=== PATIENT | female | born 1935 | race Caucasian/White ===

== ENCOUNTER 2020-03-07 10:12 | Outpatient (CLI) | payer MEDICARE, SELFPAY ==
[2020-03-07 11:19] LABS: Basophils Absolute Auto 0.1 K/mm3 (0.0-0.1); Basophils Percent Auto 0.6 % (0.2-1.2); Eosinophils Absolute Auto 0.5 K/mm3 (0-0.3); Eosinophils Percent Auto 3.9 % (0-4.4); Hemoglobin 10.4 g/dL (12.0-15.0); Immature Granulocyte Absolute 0.03 K/mm3 (0.00-0.031); Immature Granulocyte Percent A 0.3 % (0-0.5); Lymphocytes Absolute Auto 1.49 K/mm3 (0.9-3.2); Mean Corpuscular HGB Conc 30.6 g/dl (32-36); Mean Corpuscular Hemoglobin 26.2 pg (26-34); Mean Corpuscular Volume 85.6 fl (80-100); Mean Platelet Volume 10.4 fl (7.4-10.4); Monocytes Absolute Auto 0.9 K/mm3 (0.1-0.6); Monocytes Percent Auto 7.9 % (2.6-8.5); Neutrophils Absolute Auto 8.5 K/mm3 (1.3-6.7); Neutrophils Percent Auto 74.3 % (45.5-73.1); Platelet Count Result 402 k/mm3 (150-375); Red Blood Count 3.97 M/mm3 (4.2-5.4); Red Cell Distribution Width 14.9 % (11.5-14.5); White Blood Count 11.5 K/mm3 (4.5-10.0)
[2020-03-07 12:02] LABS: Add Urine Microscopic? YES; Appearance Urine Clear (Clear); Bacteria Urine Trace /hpf; Bilirubin Urine Negative (Negative); Blood Urine Negative (Negative); Color Urine Yellow (Yellow); Glucose Urine UA Negative (Negative); Ketones Urine Negative (Negative); Leukocyte Esterase Ur 2+ LEU/UL (Negative); Mucus Urine Rare /lpf; Nitrate Urine Positive (Negative); Protein Urine Negative (Negative); RBC Urine 0-2 /hpf (0-2); Specific Grav Ur 1.014 (1.001-1.035); Squamous Epithelial Cell Urine Few /hpf (Few); Urobilinogen Urine Negative mg/dL (<2.0)
[2020-03-07 12:18] LABS: Alanine Aminotransferase 21 U/L (4-35); Albumin Level 3.9 g/dL (3.5-5.1); Alkaline Phosphatase 87 U/L (38-126); Anion Gap 12.2 mmol/L (7-16); Aspartate Amino Transferase 23 U/L (14-36); Bilirubin,Total 0.2 mg/dL (0.2-1.3); Blood Urea Nitrogen 26 mg/dL (7-17); CRP 2.4 mg/dL (<1.0); Calcium 9.5 mg/dL (8.4-10.2); Carbon Dioxide 27 mmol/L (22-30); Chloride 101 mmol/L (98-107); Estimated Glomerular Filt Rate > 60; Glucose 133 mg/dL (65-105); Potassium 4.2 mmol/L (3.4-5.0); Sodium 136 mmol/L (137-145)
[2020-03-07 12:27] LABS: Erythrocyte Sedimentation Rate 74 mm/hr (0-20)
[2020-03-07 13:17] LABS: Rheumatoid Factor < 8.6 IU/ML (<12)
[2020-03-12 21:51] LABS: Anti Cyclic Citrullinated Pept <16 Units (<20)
[2020-03-12 22:40] LABS: ANA Cascade Screen Negative (Negative)
== END 2020-03-07 10:13 | disposition home or self-care (01) ==
PROVIDERS: Visit Provider Internal Medicine
DX: M19.90 Unspecified osteoarthritis, unspecified site (principal); M06.9 Rheumatoid arthritis, unspecified; Z79.899 Other long term (current) drug therapy
CPT/HCPCS: 36415; 80053; 81001; 85025; 85652; 86038; 86140; 86200; 86430

== ENCOUNTER 2020-03-07 11:18 | Outpatient (CLI) | payer MEDICARE, SELFPAY ==
--- NOTE | ~2020-03-07 | XR_ITS ---
XR lumbar spine min 4V DATE: 03/07/2020 12:31 INDICATION: Back pain TECHNIQUE: AP, lateral, coned lateral lumbosacral and bilateral oblique views COMPARISON: None FINDINGS: There is moderate levoscoliosis of the lower thoracic and lumbar spine. There is moderately prominent degenerative disc disease at L1-2, L3-4. There is severe degenerative disc disease at L2-3. There is very severe degenerative disc disease at L4-5, with borderline grade 1/grade 2 anterolisthes is at L4-5. There is severe degenerative disc disease at L5-S1. There is very prominent degenerative change at the apophyseal joints at the mid and lower lumbar and lumbosacral spine. The sacroiliac joints are intact. There is extensive calcification of the abdominal aorta and iliac arteries, without aneurysm. IMPRESSION: Moderate levoscoliosis of the lower thoracic and lumbar spine Extensive degenerative disc disease of the lumbar and lumbosacral spine Borderline grade 1/grade 2 anterolisthesis at L4-5 Reviewed, dictated and finalized at location B.
--- NOTE | ~2020-03-07 | XR_ITS ---
EXAMINATION: XR knee LT min 4V DATE: 03/07/2020 12:31 INDICATION: Left knee pain. TECHNIQUE: 4 views of left knee were obtained. COMPARISON: None. FINDINGS: There is a total left knee arthroplasty with patellar resurfacing in near-anatomic alignmen t. No fracture. No periprosthetic lucency to suggest loosening or infection. There is a small knee belinda int effusion. IMPRESSION: 1. Total left knee arthroplasty in near-anatomic alignment. 2. Small left knee joint effusion. Reviewed, dictated and finalized at location A.
--- NOTE | ~2020-03-07 | XR_ITS ---
XR foot RT standing 2V DATE: 03/07/2020 12:31 INDICATION: Right foot pain. Osteoarthritis. TECHNIQUE: Standing AP and lateral views COMPARISON: None FINDINGS: Mild posterior calcaneal enthesopathy. There is severe osteoarthritis at the first metatarsophalangeal joint. There are some irregular calci fications along the medial aspect of the head of the first metatarsal bone. There is mild hallux valg us. Recommend clinical correlation for possible prior bunionectomy. No recent fracture or dislocation, periosteal reaction or bone destruction is noted otherwise. Os tib iale externum, normal variant. IMPRESSION: Severe osteoarthritis at the first metatarsophalangeal joint; there are irregular calcifi cations or ossific densities along the medial aspect of the first metatarsal head Mild posterior calcaneal enthesopathy Reviewed, dictated and finalized at location B. IMPRESSION: Severe osteoarthritis at the first metatarsophalangeal joint; there are irregular calcifications or ossific densities along the medial aspect of t he first metatarsal head Mild posterior calcaneal enthesopathy
--- NOTE | ~2020-03-07 | XR_ITS ---
XR hand BI arthritis min 3V DATE: 03/07/2020 12:31 INDICATION: Bilateral hand pain. Osteoarthritis. TECHNIQUE: 4 views of each hand COMPARISON: None FINDINGS: Right hand: Minimal triangular cartilage calcification. Diffuse osteopenia. The lunate bone is attenuated in size, possibly due to chronic avascular necrosis or possibly old fra cture. There is polyarticular osteoarthritis including the first carpometacarpal joint, especially the secon d metacarpophalangeal and also first and third metacarpophalangeal joints and multiple interphalangea l joints. Left hand: Mild granular cartilage calcification. Diffuse osteopenia. Osteoarthritic change at the triscaphe and first carpometacarpal and second metacarpophalangeal and m ultiple interphalangeal joints. No fracture, dislocation, periosteal reaction or bone destruction. 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
--- NOTE | ~2020-03-07 | XR_ITS ---
XR hip BI 2V w AP pelvis DATE: 03/07/2020 12:31 INDICATION: Bilateral hip pain TECHNIQUE: AP pelvis. AP and lateral views of each hip. COMPARISON: None FINDINGS: There is levoscoliosis and multilevel degenerative disc disease of the lumbar spine. The sacral iliac joints and pubic symphysis are intact. Mild osteitis pubis. Diffuse osteopenia. No pelvic fracture or bone destruction is detected. Hip joint spaces are symmetric and relatively pre served. No fracture, dislocation, avascular necrosis or bone destruction of either hip is detected. Abdominal aortic and iliac and femoral arterial calcifications IMPRESSION: Levoscoliosis and multilevel degenerative disease of the lumbar spine Osteopenia No fracture or dislocation or bone destruction of the hips Reviewed, dictated and finalized at location B. IMPRESSION: Levoscoliosis and multilevel degenerative disease of the lumbar spi ne Osteopenia No fracture or dislocation or bone destruction of the hips
--- NOTE | ~2020-03-07 | XR_ITS ---
EXAMINATION: XR knee RT min 4V DATE: 03/07/2020 12:31 INDICATION: Unspecified osteoarthritis, unspecified site. TECHNIQUE: 4 views of right knee were obtained. COMPARISON: None. FINDINGS: There is lateral subluxation of patella. No fracture. There is severe osteoarthritis of pat ellofemoral compartment, moderate osteoarthritis of lateral compartment, and mild osteoarthritis of m edial compartment. There is chondrocalcinosis of the menisci. No knee joint effusion. IMPRESSION: 1. Severe right knee osteoarthritis. Reviewed, dictated and finalized at location A.
--- NOTE | ~2020-03-07 | XR_ITS ---
XR foot LT standing 2V DATE: 03/07/2020 12:31 INDICATION: Osteoarthritis. Foot pain. TECHNIQUE: Weightbearing AP and lateral views COMPARISON: None FINDINGS: There is posterior calcaneal enthesopathy. No fracture or dislocation, periosteal reaction or bone destruction is detected. Os tibiale externum, normal variant. Joint spaces are relatively preserved. No erosive change is evident. IMPRESSION: Posterior calcaneal enthesopathy Reviewed, dictated and finalized at location B.
== END 2020-03-07 11:19 | disposition home or self-care (01) ==
LOC: ANHIMG 11:34
PROVIDERS: Visit Provider Internal Medicine
DX: M06.9 Rheumatoid arthritis, unspecified (principal); M19.071 Primary osteoarthritis, right ankle and foot; M77.31 Calcaneal spur, right foot; M77.32 Calcaneal spur, left foot; M85.841 Other specified disorders of bone density and structure, right hand; M85.842 Other specified disorders of bone density and structure, left hand; M19.041 Primary osteoarthritis, right hand; M19.042 Primary osteoarthritis, left hand; M85.851 Other specified disorders of bone density and structure, right thigh; M85.852 Other specified disorders of bone density and structure, left thigh; M51.36 Other intervertebral disc degeneration, lumbar region; M51.37 Other intervertebral disc degeneration, lumbosacral region; M17.11 Unilateral primary osteoarthritis, right knee; M25.462 Effusion, left knee
CPT/HCPCS: 36415; 72110; 73130; 73521; 73564; 73620; 80053; 81001; 85025; 85652; 86038; 86140; 86200; 86430

== ENCOUNTER 2020-04-29 15:41 | Outpatient (CLI) | payer MEDICARE, SELFPAY ==
--- NOTE | ~2020-04-29 | XR_ITS ---
EXAMINATION: XR sacroiliac joints min 3V DATE: 04/29/2020 18:21 INDICATION: Unspecified osteoarthritis, unspecified site. TECHNIQUE: 3 views of the sacroiliac joints were obtained. COMPARISON: Pelvis radiograph 03/07/2020 FINDINGS: There is lumbar levoscoliosis and severe spondylosis. No fracture. There is mild osteoarthr itis of the sacroiliac joints and hip joints. Osteitis pubis is noted. IMPRESSION: 1. Mild osteoarthritis of the sacroiliac joints. Reviewed, dictated and finalized at location A.
--- NOTE | ~2020-04-29 | MR_ITS ---
EXAMINATION: MR hand LT wo/w con, MR hand RT wo/w con DATE: 04/29/2020 18:17 INDICATION: Unspecified osteoarthritis. Assess for rheumatoid arthritis. TECHNIQUE: 1. Magnetic resonance imaging (MRI) of the left hand was performed without and with 15 mL Multihance intravenous contrast to include the metacarpals and digits. Sequences included axial T1-weighted FS F SE and axial, sagittal and coronal T1-weighted FSE and T2-weighted FS FSE. Following contrast injecti on the patient requested the study be terminated and no post contrast images were obtained. The axial and sagittal images of both hands were obtained on the same sequences. The left hand is indicated wi th a marker. 2. MRI of the right hand was performed without and with 15 mL Multihance intravenous contrast to incl ude the metacarpals and digits utilizing the same contrast bolus. As with the left hand, post contras t images were unable to be obtained. Sequences included axial T1-weighted FS FSE and axial, sagittal and coronal T1-weighted FSE and T2-weighted FS FSE. As previously noted no post contrast images were able to be obtained. COMPARISON: Radiographs dated 03/07/2020 FINDINGS: At the right carpus there is volar subluxation and dorsal rotation of the lunate with increased betwe en the capitate and scapholunate angles consistent with dorsal intercalated segment instability (DISI ). The right lunate appears small with remodeling at the dorsal aspect of the bone. Bone alignment is otherwise normal. No fracture. Polyarticular osteoarthritis with nonuniform joint space narrowing an d osteophyte formation at both hands which is severe at the bilateral second metacarpophalangeal join ts and, moderate severity at the right first carpal metacarpal and mid carpal joints and mild at many of the remaining metacarpophalangeal joints, majority of the interphalangeal joints, at the left fir st carpal metacarpal joint and bilateral triscaphe joints. In the right hand and wrist are erosions a t the heads of the second and fifth metacarpals, the base of the second proximal phalanx, base of the first metacarpal and at the ulnar styloid process. At the left hand and wrist there are small erosio ns at the base of the second proximal phalanx. Mild joint effusion and/or synovitis at the left and r ight second metacarpophalangeal joints. No other joint effusions or other abnormal fluid collections. The flexor and extensor tendons at both hands as well as the collateral ligament complexes at the bi lateral metacarpophalangeal and interphalangeal joints appear normal. IMPRESSION: 1. Polyarticular osteoarthritis at the bilateral hands with atypical predominance at the bilateral se cond metacarpophalangeal joints where there are prominent hooked osteophytes and erosions. This along with the assistance of chondrocalcinosis evident at the triangular fibrocartilage complex on the [place] or radiographs would strongly favor calcium pyrophosphate deposition (CPPD) disease or other inflamma tory arthritis such as rheumatoid arthritis. 2. 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 Reviewed, dictated and finalized at location A. IMPRESSION: 1. Polyarticular osteoarthritis at the bilateral hands with atypical predominan ce at the bilateral second metacarpophalangeal joints where there are prominent hooked osteophytes and erosions. This along with the assistance of chondrocalc inosis evident at the triangular fibrocartilage complex on the prior radiograph s would strongly fav
[2020-04-29 16:52] LABS: Estimated Glomerular Filt Rate 43
== END 2020-04-29 15:42 | disposition home or self-care (01) ==
PROVIDERS: PCP Internal Medicine; Visit Provider Internal Medicine
DX: M06.9 Rheumatoid arthritis, unspecified (principal); M19.042 Primary osteoarthritis, left hand; M19.041 Primary osteoarthritis, right hand; M47.898 Other spondylosis, sacral and sacrococcygeal region
CPT/HCPCS: 72202; 73220; A9577

== ENCOUNTER 2020-06-17 15:52 | Emergency (ER) | payer MEDICARE, SELFPAY ==
--- NOTE | ~2020-06-17 | XR_ITS ---
EXAMINATION: XR chest 2V DATE: 06/17/2020 17:29 INDICATION: Shortness of breath and left chest pain. TECHNIQUE: Frontal and lateral views of the chest were obtained. COMPARISON: None. FINDINGS: There is mild atelectasis at left lung base. There is blunting of left posterior costophren ic angle. No pneumothorax. The heart size is normal. There are surgical clips in left breast. IMPRESSION: 1. Blunting of left posterior costophrenic angle, consistent with scarring versus tiny pleural effusi on. 2. Mild atelectasis at left lung base. Reviewed, dictated and finalized at location A. OARCHAEOLOGIST IMPRESSION: 1. Blunting of left posterior costophrenic angle, consistent with scarring vers us tiny pleural effusion. 2. Mild atelectasis at left lung base.
--- NOTE | 2020-06-17 16:01 | ECG_ITS ---
Measurements Intervals [place] Rate: 79 P: 53 KS: 164 QRS: -6 QRSD: 83 T: 60 QT: 375 QTc: 432 Interpretive Statements SINUS RHYTHM LEFT VENTRICULAR HYPERTROPHY AND ST-T CHANGE BASELINE ARTIFACT- I, III, AVF, V1, V4-V6 BORDERLINE ECG Electronically Signed On 06-17-2020 16:26:48 INSTRUMENTATION DESIGNER by Robert Womack D.O.
[2020-06-17 16:03] VITALS: BP 119/72; PULSE 81; RESP 18; TEMP 36; O2SAT 98
[2020-06-17 16:16] LABS: Basophils Percent Auto 0.4 % (0.2-1.2); Eosinophils Absolute Auto 0.1 K/mm3 (0-0.3); Hematocrit 38.3 % (37.0-47.0); Hemoglobin 12.4 g/dL (12.0-15.0); Immature Granulocyte Absolute 0.07 K/mm3 (0.00-0.031); Immature Granulocyte Percent A 0.6 % (0-0.5); Lymphocytes Absolute Auto 1.19 K/mm3 (0.9-3.2); Lymphocytes Percent Auto 10.8 % (18.3-44.2); Mean Corpuscular HGB Conc 32.4 g/dl (32-36); Mean Corpuscular Hemoglobin 28.4 pg (26-34); Mean Corpuscular Volume 87.6 fl (80-100); Mean Platelet Volume 10.5 fl (7.4-10.4); Monocytes Absolute Auto 0.6 K/mm3 (0.1-0.6); Monocytes Percent Auto 5.7 % (2.6-8.5); Neutrophils Percent Auto 81.5 % (45.5-73.1); Platelet Count Result 283 k/mm3 (150-375); Red Blood Count 4.37 M/mm3 (4.2-5.4); Red Cell Distribution Width 16.4 % (11.5-14.5)
[2020-06-17 16:26] LABS: Anion Gap 8 mmol/L (8-16); Blood Urea Nitrogen 35 mg/dL (7-17); Calcium 9.7 mg/dL (8.4-10.2); Carbon Dioxide 28 mmol/L (22-30); Chloride 101 mmol/L (98-107); Estimated Glomerular Filt Rate 48; Glucose 177 mg/dL (65-105); Potassium 4.4 mmol/L (3.4-5.0); Sodium 137 mmol/L (137-145)
[2020-06-17 16:30] LABS: INR 0.9; Prothrombin Time 12.8 Seconds (11.1-14.7)
[2020-06-17 16:31] LABS: Partial Thromboplastin Time 23.1 SECONDS (22.3-36.8)
[2020-06-17 16:47] LABS: Troponin I 0.025 ng/mL (0.000-0.034)
--- NOTE | 2020-06-17 17:47 | ED.CHESTPAIN ---
HPI - Chest Pain General Chief Complaint: Chest Pain Stated Complaint: cp, sob Time Seen by Provider: 06/17/20 17:20 Source: patient History of Present Illness HPI narrative: 84-year-old female presents to emergency department for shortness of breath with exertion for the past 3 months. Patient was seen by her collections rep today, and was sent into the emergency department for further evaluation. Patient denies history of taking Lasix. Currently patient is asymptomatic. No current chest pain or shortness of breath. No abdominal pain. No nausea or vomiting. No fever or chills. Related Data Home Medications Medication Instructions Recorded Confirmed aspirin 81 mg tablet,delayed 81 mg PO DAILY 02/25/20 03/07/20 release atorvastatin 20 mg tablet 20 mg PO DAILY 02/25/20 03/07/20 carvedilol 6.25 mg tablet 6.25 mg PO Q12H 02/25/20 03/07/20 gabapentin 300 mg capsule 300 mg PO TID 02/25/20 03/07/20 lisinopril 20 1 tablet PO DAILY 02/25/20 03/07/20 mg-hydrochlorothiazide 25 mg tablet metformin 500 mg tablet,extended 500 mg PO BID 02/25/20 03/07/20 release 24hr ropinirole 2 mg tablet 2 mg PO BID 02/25/20 03/07/20 Allergies Allergy/AdvReac Type Severity Reaction Status Date / Time meperidine [From Demerol] Allergy Mild Nausea and Verified 06/17/20 18:02 Vomiting morphine Allergy Mild Nausea and Verified 06/17/20 18:02 Vomiting Review of Systems Review of Systems: Narrative: CONSTITUTIONAL: Denies fever, chills, or sweats. EYES: Denies visual changes, redness, or discharge. ENT: Denies rhinorrhea, congestion, sore throat, or otalgia. CARDIOVASCULAR: Denies chest pain, palpitations, or edema. RESPIRATORY: Denies cough or dyspnea. GASTROINTESTINAL: Denies abdominal pain, nausea, vomiting, or diarrhea. GENITOURINARY: Denies dysuria or hematuria. SKIN: Denies rash or itching. MUSCULOSKELETAL: Denies back pain, joint pain, or myalgia. NEUROLOGIC: Denies headache, numbness, dizziness, or weakness. PSYCHIATRIC: Denies anxiety or depression. All systems reviewed & are unremarkable except as noted in HPI and below (ROS) [facility] Past Medical History Medical History Anemia Arthritis Cancer Chest pain at rest (~06/2020) Diabetes Gallbladder disorder Generalized osteoarthritis of multiple sites Hypertension Obstruction of right carotid artery Osteoporosis Polymyalgia rheumatica Tuberculosis Surgical History Surgical History H/O bladder repair surgery H/O: hysterectomy History of arthroplasty of left shoulder History of bunionectomy History of total left knee replacement Hx of cholecystectomy Status post left breast lumpectomy Status post right foot surgery Family History Family History Mother Liver disease Father Cerebrovascular accident Heart disease Grandparent Tuberculosis Cerebrovascular accident Stomach cancer Exam Narrative: Exam Narrative: GENERAL: Well-appearing, well-nourished, and in no acute distress. HEAD: Normocephalic, atraumatic. EYES: PERRLA and EOMI. ENT: Nares clear, no rhinorrhea or epistaxis. Mucous membranes moist. NECK: Supple. CHEST: Clear to auscultation. No respiratory distress. HEART: Regular rate and rhythm. 3/6 systolic murmur. Normal peripheral pulses. ABDOMEN: Soft, nontender, nondistended, normal active bowel sounds. EXTREMITIES: Normal range of motion. 1+ pitting edema lower extremities bilaterally SKIN: Warm, dry, no rash. NEURO: No focal deficits. Alert and oriented x3. PSYCH: Normal mood and affect. Course Reevaluation(s) Reevaluation #1: 1915 -reevaluated patient, no new complaints. At this time, I see no emergent condition necessitating this patient to be kept in the hospital for further evaluation. Patient likely has a form of CHF. Patient will need an
[2020-06-17 18:00] VITALS: PULSE 73; O2SAT 100
[2020-06-17 18:01] VITALS: BP 131/83; PULSE 77; RESP 18; O2SAT 99
[2020-06-17 18:30] LABS: NT Pro B Type Natriuretic Pept 697 PG/ML (5-100)
[2020-06-17 19:37] LABS: Troponin I 0.024 ng/mL (0.000-0.034)
[2020-06-17 20:12] VITALS: BP 130/78; PULSE 74; RESP 18; TEMP 36.7; O2SAT 98
== END 2020-06-17 20:12 | disposition home or self-care (01) ==
PROVIDERS: Emergency Provider Emergency Medicine; PCP Internal Medicine
DX: R06.02 Shortness of breath (principal); D64.9 Anemia, unspecified; M19.90 Unspecified osteoarthritis, unspecified site; E11.9 Type 2 diabetes mellitus without complications; I10 Essential (primary) hypertension; Z96.652 Presence of left artificial knee joint; Z79.84 Long term (current) use of oral hypoglycemic drugs
CPT/HCPCS: 36415; 71046; 80048; 83880; 84484; 85025; 85610; 85730; 93005; 99284

== ENCOUNTER 2023-03-13 19:48 | Emergency (ER) | payer MEDICARE, SELFPAY ==
[2023-03-13 19:54] VITALS: BP 141/92; PULSE 84; RESP 20; TEMP 36.5; O2SAT 97
--- NOTE | 2023-03-13 19:57 | ED.SKABFB ---
HPI - Skin/Abscess/Foreign Bdy General Chief complaint: Skin/Abscess/Foreign Body Stated complaint: rash all over History of Present Illness HPI narrative: Patient presents with a itchy rash to both her arms and legs that started over a week ago. Patient states she switch laundry detergents and thinks that could be the cause of the rash. No shortness of breath and no chest pain patient has been putting Benadryl cream Related Data Home Medications Medication Instructions Recorded Confirmed aspirin 81 mg tablet,delayed 81 mg PO DAILY 02/25/20 12/05/20 release (Adult Low Dose Aspirin) atorvastatin 20 mg tablet 20 mg PO DAILY 02/25/20 12/05/20 carvedilol 6.25 mg tablet 6.25 mg PO Q12H 02/25/20 12/05/20 gabapentin 300 mg capsule 300 mg PO TID 02/25/20 12/05/20 lisinopril 20 1 tablet PO DAILY 02/25/20 12/05/20 mg-hydrochlorothiazide 25 mg tablet metformin 500 mg tablet,extended 500 mg PO BID 02/25/20 12/05/20 release 24hr ropinirole 2 mg tablet 2 mg PO BID 02/25/20 12/05/20 Allergies Allergy/AdvReac Type Severity Reaction Status Date / Time meperidine [From Demerol] Allergy Mild Nausea and Verified 12/05/20 13:50 Vomiting morphine Allergy Mild Nausea and Verified 12/05/20 13:50 Vomiting Review of Systems Review of Systems: CONSTITUTIONAL: Denies fever, chills, or sweats. EYES: Denies visual changes, redness, or discharge. ENT: Denies rhinorrhea, congestion, sore throat, or otalgia. CARDIOVASCULAR: Denies chest pain, palpitations, or edema. RESPIRATORY: Denies cough or dyspnea. GASTROINTESTINAL: Denies abdominal pain, nausea, vomiting, or diarrhea. GENITOURINARY: Denies dysuria or hematuria. SKIN: Denies rash or itching. MUSCULOSKELETAL: Denies back pain, joint pain, or myalgia. NEUROLOGIC: Denies headache, numbness, or weakness. PSYCHIATRIC: Denies anxiety or depression. [facility] Past Medical History Medical History Anemia Arthritis Cancer Chest pain at rest (~06/2020) Diabetes Gallbladder disorder Generalized osteoarthritis of multiple sites Hypertension Obstruction of right carotid artery Osteoporosis Polymyalgia rheumatica Tuberculosis Surgical History Surgical History H/O bladder repair surgery H/O: hysterectomy History of arthroplasty of left shoulder History of bunionectomy History of total left knee replacement Hx of cholecystectomy Status post left breast lumpectomy Status post right foot surgery Family History Family History Mother Liver disease Father Cerebrovascular accident Heart disease Grandparent Tuberculosis Cerebrovascular accident Stomach cancer Comments At time of signature, agree with nursing past medical, surgical, social and family history. There is no relevant family history pertinent to the presenting complaint Exam Narrative: GENERAL: Well-appearing, well-nourished, and in no acute distress. HEAD: Normocephalic, atraumatic. EYES: PERRLA and EOMI. ENT: Nares clear, no rhinorrhea or epistaxis. Mucous membranes moist. NECK: Supple. CHEST: Clear to auscultation. No respiratory distress. HEART: Regular rate and rhythm. No murmur heard. Normal peripheral pulses. ABDOMEN: Soft, nontender, nondistended, normal active bowel sounds. EXTREMITIES: Normal range of motion. No edema. SKIN: Warm, dry, no rash. Contact dermatitis No induration fluctuance or drainage. No surrounding erythremia. No lesions and TTP. No specific pattern or dermatomal distribution. Several different stages with occasional scabbing and excoriation. Spares palms and soles. Findings consistent with contact dermatitis. To both arms and both legs NEURO: No focal deficits. Alert and oriented x3. [place] Coma Scale Eye Opening: Spontaneous 4 Carlos Coma Scale Motor: Obeys Commands 6 Carlos
== END 2023-03-13 20:08 | disposition home or self-care (01) ==
PROVIDERS: Emergency Provider Nurse Practitioner Family
DX: L25.9 Unspecified contact dermatitis, unspecified cause (principal); E11.9 Type 2 diabetes mellitus without complications; Z79.84 Long term (current) use of oral hypoglycemic drugs; I10 Essential (primary) hypertension; M81.0 Age-related osteoporosis without current pathological fracture; M35.3 Polymyalgia rheumatica; M15.9 Polyosteoarthritis, unspecified; Z96.652 Presence of left artificial knee joint; Z79.82 Long term (current) use of aspirin
CPT/HCPCS: 99213; G0463

== ENCOUNTER 2023-05-17 13:18 | Emergency (ER) | payer MEDICARE, SELFPAY ==
--- NOTE | 2023-05-17 13:36 | ED.SKABFB ---
HPI - Skin/Abscess/Foreign Bdy General Chief complaint: Skin/Abscess/Foreign Body Stated complaint: Rash/Skin Sore Feet Time Seen by Provider: 05/17/23 13:36 Source: patient, RN notes reviewed and old records reviewed Mode of arrival: ambulatory Limitations: no limitations History of Present Illness HPI narrative: 87 year old female accompanied by friend presents to express care with complaints of blistery lesion and discomfort to her feet which has increased in the past few days. Patient reports that she has been dealing with this red itchy rash allover body for almost 3 month. She reports that she has been to her doctor and also saw geomorphology teacher on the 04 of May and received some cream to apply to her skin. Friend reports that patient lives in independent living facility and has poor vision, some one sets her medication up for her but she does her own bathing and dressing. Patient reports that rash itches bad. Bilateral feet have red rash with fluid filled blisters noted. Facility contacted with no recent know communicable rashes noted. Friend states that sister is here from [place] and concerned over rash. MD complaint: rash Onset (ago): month(s) (3 months generalized increased symptoms to feet past few days) Location: generalized, L foot and R foot Severity scale (1-10): 4 Quality: pruritic Treatments prior to arrival: OTC topical medication (to body as ordered by geomorphology teacher) Related Data Home Medications Medication Instructions Recorded Confirmed aspirin 81 mg tablet,delayed 81 mg PO DAILY 02/25/20 12/05/20 release (Adult Low Dose Aspirin) atorvastatin 20 mg tablet 20 mg PO DAILY 02/25/20 12/05/20 carvedilol 6.25 mg tablet 6.25 mg PO Q12H 02/25/20 12/05/20 gabapentin 300 mg capsule 300 mg PO TID 02/25/20 12/05/20 lisinopril 20 1 tablet PO DAILY 02/25/20 12/05/20 mg-hydrochlorothiazide 25 mg tablet metformin 500 mg tablet,extended 500 mg PO BID 02/25/20 12/05/20 release 24hr ropinirole 2 mg tablet 2 mg PO BID 02/25/20 12/05/20 Allergies Allergy/AdvReac Type Severity Reaction Status Date / Time meperidine [From Demerol] Allergy Mild Nausea and Verified 12/05/20 13:50 Vomiting morphine Allergy Mild Nausea and Verified 12/05/20 13:50 Vomiting Review of Systems Review of Systems: CONSTITUTIONAL: Denies fever, chills, or sweats. CARDIOVASCULAR: Denies chest pain, palpitations, or edema. RESPIRATORY: Denies cough or dyspnea. SKIN: Reports generalized red raised rash to body,few days of increased areas of redness to feet with blisters. MUSCULOSKELETAL: Denies joint pain or myalgia. NEUROLOGIC: Denies headache, numbness, or weakness. All systems reviewed & are unremarkable except as noted in HPI and below PMFSH Past Medical History Medical History Anemia Arthritis Cancer Chest pain at rest (~06/2020) Diabetes Gallbladder disorder Generalized osteoarthritis of multiple sites Hypertension Obstruction of right carotid artery Osteoporosis Polymyalgia rheumatica Tuberculosis Surgical History Surgical History H/O bladder repair surgery H/O: hysterectomy History of arthroplasty of left shoulder History of bunionectomy History of total left knee replacement Hx of cholecystectomy Status post left breast lumpectomy Status post right foot surgery Family History Family History Mother Liver disease Father Cerebrovascular accident Heart disease Grandparent Tuberculosis Cerebrovascular accident Stomach cancer Social History Social History (Updated 05/19/23 @ 11:36 by Kajal Paredes NP) Smoking status: Never smoker Alcohol intake: unknown Substance use type: does not use Additional living arrangements comments: lives in independent living facility, patient has poor vision [facility]
[2023-05-17 13:37] VITALS: BP 82/54; PULSE 77; RESP 16; TEMP 36.6; O2SAT 98
== END 2023-05-17 14:20 | disposition home or self-care (01) ==
PROVIDERS: Emergency Provider Registered Nurse; PCP Family Medicine
DX: L25.9 Unspecified contact dermatitis, unspecified cause (principal); B35.3 Tinea pedis; E11.9 Type 2 diabetes mellitus without complications; I10 Essential (primary) hypertension
CPT/HCPCS: 99213; G0463